=== PATIENT | female | born 1950 | race Caucasian/White ===

== ENCOUNTER 2022-08-10 12:07 | Outpatient (REF) | payer MEDICARE, OTHER, SELFPAY | END 2022-08-10 12:08 | disposition home or self-care (01) | LOC: HO.SH 12:07 | PROVIDERS: Visit Provider Physician Assistant Medical | DX: Z01.118 Encounter for examination of ears and hearing with other abnormal findings (principal); H90.3 Sensorineural hearing loss, bilateral | CPT/HCPCS: 92557 ==

== ENCOUNTER 2024-08-03 14:11 | Outpatient (AMB) | payer MEDICARE, OTHER, SELFPAY ==
--- NOTE | 2024-08-03 14:33 | MHC.OFFVIS ---
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 She reports this came about 2 years ago however it was smaller in size. She noticed about 4 months ago it started to bother her a lot and it increased in size. She made an appointment with her PCP who referred her to orthopedics. She expresses daily pain in the right index finger. Constant use of the right index finger and the cold exacerbate her pains and discomfort. Denies numbness and tingling. Allergies Sulfa (Sulfonamide Antibiotics) Allergy (Severe, Verified 08/03/24 14:35) Hives HPI HPI WASHER MEAT-nodule on finger of right hand: Details: Patient is a 74-year-old female who presents for evaluation of nodule of the dorsal aspect of the right index finger. Patient states that this nodule has been there for approximately 2 years, but she noticed an acute enlargement of the nodule approximately 6 months ago. Patient states that the size has remained consistent since that time. Patient reports that this not does cause her some discomfort when she attempts to her right index finger, but she is able to use the hand through this discomfort. Patient denies any numbness or tingling in the right upper extremity. No other acute complaints or concerns at this time [facility] Social History (Updated 08/03/24 @ 14:37 by ALYSON Tarango) Alcohol intake: current Alcohol intake frequency: a few times a week Patient Tobacco Use Status: Never used Tobacco Current occupational status: retired Review of Systems Const All systems reviewed & are unremarkable except as noted in HPI and below Physical Exam Vital Signs: BMI result Body Mass Index 39.5 Extrem Other: Patient is alert, oriented, and in no acute distress. Neuro: Normal sensation of the tips of all digits of the right hand at this time Vascular: Cap refill brisk Pain: No tenderness to palpation about the mass noted on the dorsal aspect of the right index finger at the level of the MCP joint Patient reports very minor discomfort in his area with range of motion testing of the right hand ROM: Patient is able to make a closed fist and extend all digits of the right hand fully Skin: No lacerations or abrasions. General: There is noted to be an approximately 2 cm x 0.5 cm fluid filled mass noted on the dorsal and ulnar aspect of the patient's right index finger at the level of and just proximal to the PIP joint No ecchymosis, erythema, or evidence of infection. Psych: Appears grossly normal Affect normal Attitude cooperative Results Reviewed Results Reviewed: MRI report brought in by the patient states that this mass noted on the dorsal aspect of the right index finger is cystic consistent with potential ganglion cyst Assessment & Plan Assessment & Plan (1) Ganglion cyst of finger of right hand: Code(s): M67.441 - Ganglion, right hand Category: Medical Plan 1. Ganglion cyst of PIP joint of right index finger Patient is educated about this condition Patient is educated about the treatment options available At this time, patient states she is most interested in potential surgical excision of this mass, but states that she is apprehensive about booking today, as she feels that she should think it over for a few weeks and have discussions with her friends and family prior to surgery Patient was book for follow-up appointment in 4 weeks with me while Dr. Rodriguez's in the office for further discussion of potential surgical excision of this ganglion cyst Patient was amenable to this plan Patient will follow-up in 4 weeks, sooner with any acute concerns Coding Level of Care Code New Pt Level 3 (08350) Diagnoses Ganglion cyst of finger of right hand M67.441
[2024-08-03 14:35] VITALS: BMI 39.5
== END 2024-08-03 14:55 | disposition home or self-care (01) ==
PROVIDERS: PCP Physician Assistant Medical
DX: M67.441 Ganglion, right hand (principal)
CPT/HCPCS: 99203

== ENCOUNTER → 2024-08-03 14:11 | Outpatient (BNVA) | payer MEDICARE, OTHER, SELFPAY | PROVIDERS: PCP Physician Assistant Medical | DX: M67.441 Ganglion, right hand (principal) | CPT/HCPCS: 99202 ==